=== PATIENT | female | born 1960 | race Caucasian/White ===

== ENCOUNTER 2022-02-25 04:19 | Day surgery (SDC) | payer OTHER ==
[2022-02-23 11:24] VITALS: BMI 30.5
[2022-02-25 08:19] VITALS: TEMP 97.3
[2022-02-25 09:01] VITALS: BP 116/68; PULSE 69; RESP 16
== END 2022-02-25 08:55 | disposition home or self-care (01) ==
LOC: JASU-ENDO 04:19
PROVIDERS: ATTEND Internal Medicine Gastroenterology
PROC: 0DJD8ZZ Inspection of Lower Intestinal Tract, Via Natural or Artificial Opening Endoscopic (ICD-10-PCS; principal; 2022-02-25 08:30)
DX: Z12.11 Encounter for screening for malignant neoplasm of colon (principal); K57.30 Diverticulosis of large intestine without perforation or abscess without bleeding; K64.8 Other hemorrhoids; Z83.71 Family history of colonic polyps